=== PATIENT | female | born 2000 | race Two or more races ===

== ENCOUNTER 2022-05-03 18:10 | Emergency (ER) | payer SELFPAY ==
[~2022-05-03] VITALS: Ht 154.9 cm; Wt 71.8 kg
[2022-05-03 18:34] VITALS: BP 132/70
[2022-05-03 19:05] LABS: Urine Bacteria NONE SEEN /hpf (None Seen); Urine Blood 3+ /uL (Negative); Urine Mucus FEW (None Seen); Urine Specific Gravity 1.023 (1.001-1.035); Urine WBC 175 /hpf (0 - 5)
[2022-05-03 19:47] LABS: Basophils # (auto) 0.1 10 ^3/uL (0-0.2); Basophils % (auto) 0.7 % (0.0-2.0); Eosinophils # (auto) 0.4 10 ^3/uL (0-0.8); Eosinophils % (auto) 2.6 % (0.0-7.0); Hematocrit 42.1 % (36.0-46.0); Hemoglobin 13.6 g/dL (12.2-16.2); Lymphocytes # (auto) 3.9 10 ^3/uL (0.4-5.4); Lymphocytes % (auto) 27.5 % (10.0-50.0); Mean Corpuscular Hemoglobin 28.5 pg (28.0-32.0); Mean Corpuscular Hgb Conc. 32.4 g/dL (32.0-36.0); Mean Corpuscular Volume 88.1 fL (80.0-100.0); Monocytes # (auto) 0.6 10 ^3/uL (0-1.3); Monocytes % (auto) 4.4 % (0.0-12.0); Neutrophils # (auto) 9.3 10 ^3/uL (1.6-8.6); Neutrophils % (auto) 64.8 % (37.0-80.0); Red Blood Cells 4.78 10^6/uL (4.0-5.20); Red Cell Distribution Width 13.2 % (11.8-14.3); White Blood Cell 14.3 10^3/uL (4.4-10.8)
[2022-05-03 20:09] LABS: Albumin 3.9 g/dL (3.4-5.0); Calcium 9.2 mg/dL (8.5-10.1); Potassium 3.1 mmol/L (3.5-5.1)
[2022-05-03 20:14] LABS: BUN/Creatinine Ratio 16.9; Bilirubin, Total 0.2 mg/dL (0.2-1.0); Total Protein 8.2 g/dL (6.4-8.2)
[2022-05-04] MEDS ORDERED: POTASSIUM EFFERVESENT TAB 25 MEQ PO ONE (01:15)
[2022-05-04 01:30] LABS: Hematocrit 39.2 % (36.0-46.0); Hemoglobin 12.8 g/dL (12.2-16.2)
== END 2022-05-04 04:19 | disposition left against medical advice (07) ==
LOC: ER 18:10
DX: N93.9 Abnormal uterine and vaginal bleeding, unspecified (principal); R10.2 Pelvic and perineal pain; Z53.29 Procedure and treatment not carried out because of patient's decision for other reasons
CPT/HCPCS: 36415; 80053; 81001; 84702; 85014; 85018; 85025